=== PATIENT | male | born 1930 | race African-American/Black ===

== ENCOUNTER 2017-09-23 16:50 | Inpatient (IN) ==
[2017-09-23] MEDS ORDERED: Naloxone 0.4 MG/ML INJ IVP PRN (22:48)
--- NOTE | 2017-09-23 22:53 | Internal Med History&Physical ---
Date of Encounter: 09/23/17 Time of Encounter: 22:52 Internal Medicine - H&P: HPI Chief complaint: Chest pain on arrival to [place] and abnormal labs Admitted From: Hospital to Hospital Transfer Plans for Post Hospital Care: Home History of present illness: Mr. Prather is a 86 year old male who was hospitalized in the [place] in [place]. He had visited [facility] for chest pain and was hospitalized there over the weekend. 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 Patient is a background history of benign prostatic hypertrophy, severe prostate , hip arthritis, hearing loss. Patient was transferred here from [place] for elevated troponin 1.67. Patient received aspirin/statin/beta blockers/Lovenox Reason for transfer: Elevated troponin We received some records from [place] but appears to be incomplete. Tomorrow we will her to contact [place] To get all the records from there. At the time of examination patient is chest pain-free Past Med Surg Social Fam HX - Past Medical History Medical history: other Psychiatric history: no psych history - Social History Smoking Status: Never smoker Alcohol use: rarely Drug use: none Internal Medicine - H&P: Meds Alfuzosin HCl [Uroxatral] 10 mg PO DAILY 09/23/17 [History] Aspirin [Lo-Dose Aspirin EC] 81 mg PO DAILY 09/23/17 [History] Atorvastatin [Lipitor] 40 mg PO HS 09/23/17 [History] Chlorhexidine Rinse 15 ml MM DAILY 09/23/17 [History] Cholecalciferol (D-3) [Vitamin D] 2,000 unit PO DAILY 09/23/17 [History] Enoxaparin [Lovenox] 60 mg SQ Q12HR 09/23/17 [History] Furosemide [Lasix] 20 mg IV DAILY 09/23/17 [History] Gabapentin [Neurontin] 300 mg PO TID 09/23/17 [History] Ipratropium/Albuterol Neb [Duoneb] 3 ml IH Q6HR 09/23/17 [History] Metoprolol [Lopressor] 12.5 mg PO BID 09/23/17 [History] Pantoprazole Sodium [Protonix] 40 mg PO DAILY 09/23/17 [History] 3 Allergy/AdvReac Type Severity Reaction Status Date / Time No Known Allergies Allergy Verified 09/15/15 18:03 All Systems PM: A 10-system review of systems was performed and is negative for pertinent findings except as documented above in the HPI. - Constitutional Constitutional: no chills, no fever(s), no night sweats - EENT Eyes: no change in vision, no discharge, no pain, no photophobia Ears: no ear discharge, no ear pain, no tinnitus Nose, mouth and throat: no dysphagia, no nasal discharge, no neck pain, no sore throat - Cardiovascular Cardiovascular ROS IM: chest pain, no diaphoresis, no dyspnea, no lightheadedness, no palpitations, no syncope - Respiratory Respiratory: no cough, no dyspnea, no wheezing, no excessive phlegm production - Gastrointestinal Gastrointestinal: no abdominal pain, no diarrhea, no hematemesis, no hematochezia, no melena, no nausea, no vomiting - Musculoskeletal Musculoskeletal ROS IM: no numbness, no tingling - Integumentary Integumentary IM: no rash, no unusual bruising - Neurological Neurological ROS: no confusion, no convulsions, no focal weakness, no numbness, no tingling, no tremor(s) - Hematologic/Lymphatic Hematologic/Lymphatic: no easy bruising - Constitutional Vitals: Temp Pulse Resp BP Pulse Ox 97.4 F L 95 16 139/85 100 09/23/17 20:33 09/23/17 20:33 09/23/17 20:33 09/23/17 20:33 09/23/17 20:33 General appearance: Present: A&O X 3, pleasant, no acute distress, answers questions appropriately - Head Head exam: Present: atraumatic, normocephalic - Eye Eye exam: Present: PERRL, conjuntiva pink, sclera anicteric Pupils: Present: PERRL - Neck Neck exam general surgery: Present: supple, trachea midline. Absent: lymphadenopathy - Respiratory Respiratory exam: Present: CTAB. Absent: accessory muscle use, rales, rhonchi, wheezes - Cardiovascular Cardiovascular exam: Present: RRR, +S1, +S2. Absent: diastolic murmur, gallop, rubs, systolic murmur - GI/Abdominal GI/Abdominal exam: Present: normal bowel sounds, soft, no peritoneal signs. Absent: distended, tenderness - Extremities Exam Extremities exam: Present: warm, radial pulses palpable and symmetrical. Absent : calf tenderness, cyanotic, pedal edema - Neurological Exam Neurological exam: Present: CN II-XII intact, oriented X3, no focal deficits. Absent: pronater drift, facial droop, speech deficit - Skin Skin exam: Present: dry, intact Internal Med - H&P Results - Labs Labs: Cardiac Enzymes 09/23/17 Range/Units 18:52 Troponin I 1.66 H* (< 0.04) ng/mL - Assessment and plan (1) Chest pain Current Visit: Yes Status: Acute Assessment and plan: Episodes/male Admitted to [facility] with chest pain. noted that patient has elevated troponin. Plan: Admit as inpatient Cycle troponin. Labs tomorrow morning. Nothing by mouth from midnight. Aspirin/statin/beta javid/Lovenox/ Cardiology consult Qualifiers: Chest pain type: precordial pain Qualified Code(s): R07.2 - Precordial pain (2) Coronary artery disease Current Visit: Yes Status: Acute Assessment and plan: Patient is known to have coronary artery disease. At this point patient is chest pain-free. patient is on appropriate medication. We will monitor him very closely. Qualifiers: Coronary Disease-Associated Artery/Lesion type: [place] artery [place] vs. transplanted heart: [place] heart Associated angina: with stable angina Qualified Code(s): I25.118 - Atherosclerotic heart disease of [place] coronary artery with other forms of angina pectoris (3) Benign prostate hyperplasia Current Visit: Yes Status: Acute Assessment and plan: Patient has benign prostatic hyperplasia/prostatic malignancy. At this point patient's urine flow is appropriate. we will monitor him closely. Qualifiers: Lower urinary tract symptom presence: unspecified whether lower urinary tract symptoms present Qualified Code(s): N40.0 - Benign prostatic hyperplasia without lower urinary tract symptoms (4) DVT prophylaxis Current Visit: Yes Status: Acute Assessment and plan: Lovenox Medical decision making: This patient has a moderate to severe risk of worsening in spite of being on appropriate medication due to the underlying complex medical condition. - Time Spent With Patient Total time spent is greater than 50% in coordination of care (as documented) at patient's floor/unit and/or counseling patient:
[2017-09-24] MEDS: Ipratropium/Albuterol Neb 3 ML IH SCH ×5 (00:22→21:29)
[2017-09-24 01:31] LABS: Basophils # 0.1 K/mcL (0.0-0.2); Basophils % 0.8 %; Eosinophils # 0.1 K/mcL (0.0-0.6); Eosinophils % 1.7 %; Hematocrit 33.6 % (37.5-50.1); Hemoglobin 10.7 g/dL (12.9-16.9); Immature Granulocytes % 0.5 % (0-4); Mean Corpuscular HGB Conc 31.8 g/dL (31.6-35.5); Mean Corpuscular Hemoglobin 31.6 pg (28.0-33.3); Mean Corpuscular Volume 99.1 fL (83.0-100.0); Mean Platelet Volume 10.8 fL (9.4-12.4); Monocytes # 0.9 K/mcL (0.0-1.3); Monocytes % 13.1 %; Neutrophils # 3.6 K/mcL (1.6-8.9); Platelet Count 220 K/mcL (140-400); Red Blood Count 3.39 M/mcL (4.19-5.50); Red Cell Distribution Width 13.2 % (11.5-14.5); Segmented Neutrophils % 53.9 %
[2017-09-24 01:38] LABS: INR 1.2
[2017-09-24 01:39] LABS: Activated Partial Thrombo Time 38.4 Seconds (26.0-36.0)
[2017-09-24 01:59] LABS: Alanine Aminotransferase 68 Units/L (7-52); Albumin 3.8 g/dL (3.5-5.7); Albumin/Globulin Ratio 1.3 (1.1-2.2); Alkaline Phosphatase 125 Units/L (34-104); Aspartate Amino Transferase 42 Units/L (13-39); BUN/Creatinine Ratio 39 (6-26); Bilirubin,Total 0.6 mg/dL (0.3-1.0); Blood Urea Nitrogen 44 mg/dL (8-23); Calcium 8.9 mg/dL (8.6-10.3); Carbon Dioxide 25 mEq/L (23-29); Chloride 107 mEq/L (98-107); Chol/HDL Ratio 7.2 (0-4.9); Cholesterol 181 mg/dL (< 200); Glucose 112 mg/dL (70-105); HDL Cholesterol 25 mg/dL (40-59); LDL Cholesterol,Calculated 126 mg/dL (0-99); Magnesium 2.3 mg/dL (1.6-2.6); Osmolality,Calculated 308 (280-300); Phosphorous 3.6 mg/dL (2.7-4.5); Potassium 3.7 mEq/L (3.5-5.1); Sodium 143 mEq/L (136-145); Total Protein 6.8 g/dL (6.4-8.9); Triglycerides 151 mg/dL (< 150); eGFR For African Americans > 60 (> 60); eGFR For Non-African Americans > 60 (> 60)
[2017-09-24] MEDS ORDERED: *HR* Enoxaparin 60 MG/0.6 ML SYRINGE SQ SCH (06:00)
[2017-09-24 07:13] LABS: Troponin I 1.35 ng/mL (< 0.04)
--- NOTE | 2017-09-24 08:15 | Internal Med Progress Note ---
<Von Jo - Last Filed: 09/24/17 13:07> Date of Encounter: 09/24/17 Time of Encounter: 08:07 - Assessment and plan (1) Chest pain Current Visit: Yes Status: Acute Assessment and plan: Symptoms of SOB, denies CP, but documentation reported patient had CP. Risk factors: Age, Gender, HTN, HLD. Patient was treated with lasix for SOB last week, but has no history of CHF or other cardiac disease. Patient has had 3 positive trops of 1.66, 1.35, 1.71, and elevated BNP at 638. Lipid panel was completed on admission; Tri 151, T. chol 181, LDL 126, HDL 25 (ASCVD not applicable due to patient's age). I personally reviewed 3 of his EKG's taken prior to transfer which shows no ST elevations. On physical exam patient does have a systolic murmur 3/6 L 4th IC. NSTEMI vs Mitral regurg vs other etiology. On admission, patient received ASA, statin, BB, lovenox, and place on NPO - Cardiology consulted, appreciate their input. NPO until further recommendations - ordered an echo to further workup systolic murmur - Continue ASA, statin, lovenox, lopressor. - continue tele Qualifiers: Chest pain type: precordial pain Qualified Code(s): R07.2 - Precordial pain (2) Coronary artery disease Current Visit: Yes Status: Acute Assessment and plan: see above Qualifiers: Coronary Disease-Associated Artery/Lesion type: [place] artery [place] vs. transplanted heart: [place] heart Associated angina: with stable angina Qualified Code(s): I25.118 - Atherosclerotic heart disease of [place] coronary artery with other forms of angina pectoris (3) Benign prostate hyperplasia Current Visit: Yes Status: Acute Assessment and plan: Patient has benign prostatic hyperplasia/prostatic malignancy. currently urine flow is appropriate - continue home flomax - strict I/O - can place wing cath if need be Qualifiers: Lower urinary tract symptom presence: unspecified whether lower urinary tract symptoms present Qualified Code(s): N40.0 - Benign prostatic hyperplasia without lower urinary tract symptoms (4) Systolic murmur Current Visit: Yes Status: Acute Assessment and plan: 3/6 systolic murmur heard in 4th left IC. see above for management. (5) Shortness of breath Current Visit: Yes Status: Acute Assessment and plan: see above (6) Weakness Current Visit: Yes Status: Acute Assessment and plan: patient reports unclear history of thyroid disease. - ordered TSH (7) DVT prophylaxis Current Visit: Yes Status: Acute Assessment and plan: Lovenox Medical decision making: This patient has a moderate to severe risk of worsening in spite of being on appropriate medication due to the underlying complex medical condition. - Time Spent With Patient Total time spent is greater than 50% in coordination of care (as documented) at patient's floor/unit and/or counseling patient: - Subjective Interval history: Mr Prather is an 86 yo M w/ pmh of HLD, HTN, metastatic prostate cancer (unknown treatment) presented with a 1 week history of shortness of breath to the [place] in which he was placed on lasix. His shortness of breath did not resolve and [facility] and found to have elevated trops with no ST elevations found on EKG. Patient was presumed to have NSTEMI and transferred to [place] for further workup. Patient is seen and examined. He continues to report having shortness of breath at rest that does not change with position but denies chest pain, swelling in his legs, nausea, vomiting, fever, PND, orthopnea. - Constitutional Vitals: Temp Pulse Resp BP Pulse Ox 98.7 F 93 18 118/62 94 09/24/17 07:00 09/24/17 07:00 09/24/17 07:00 09/24/17 07:00 09/24/17 07:00 General appearance: Present: A&O X 3, pleasant, no acute distress, answers questions appropriately - Head Head exam: Present: atraumatic, normocephalic - ENT ENT exam: Present: mucous membranes dry - Neck Neck exam general surgery: Present: supple - Respiratory Respiratory exam: Present: CTAB - Cardiovascular Cardiovascular exam: Present: systolic murmur (Left 4th IC 3/6 systolic murmur) - GI/Abdominal GI/Abdominal exam: Present: hypoactive bowel sounds, soft. Absent: firm, guarding, rigid - Extremities Exam Extremities exam: Absent: pedal edema Internal Medicine: Result - Labs CBC & Chem 7: 09/24/17 00:48 09/24/17 00:48 Labs: Short CBC 09/24/17 Range/Units 00:48 WBC 6.6 (4.3-11.1) K/mcL Hgb 10.7 L (12.9-16.9) g/dL Hct 33.6 L (37.5-50.1) % Plt Count 220 (140-400) K/mcL Neutrophils # 3.6 (1.6-8.9) K/mcL BMP 09/24/17 00:48 Sodium 143 Potassium 3.7 Chloride 107 Carbon Dioxide 25 BUN 44 H Creatinine 1.12 Glucose 112 H Calcium 8.9 Cardiac Enzymes 09/23/17 09/24/17 09/24/17 Range/Units 18:52 00:48 06:33 Troponin I 1.66 H* 1.71 H* 1.35 H* (< 0.04) ng/mL Liver Function 09/24/17 Range/Units 00:48 Total Bilirubin 0.6 (0.3-1.0) mg/dL AST 42 H (13-39) Units/L ALT 68 H (7-52) Units/L Alkaline Phosphatase 125 H (34-104) Units/L Albumin 3.8 (3.5-5.7) g/dL - ABG Interpretation ABG results: PT/INR, D-dimer PT 13.0 Seconds (9.4-12.1) H 09/24/17 00:48 Consult Discharge Plan - Plan [facility]errals: [facility] [Primary Care Provider] - <Percy Moore - Last Filed: 09/24/17 17:30> Date of Encounter: 09/24/17 - Time Spent With Patient Total time spent is greater than 50% in coordination of care (as documented) at patient's floor/unit and/or counseling patient: - Constitutional Vitals: Temp Pulse Resp BP Pulse Ox 97.4 F L 94 17 123/68 96 09/24/17 15:00 09/24/17 15:00 09/24/17 15:26 09/24/17 15:00 09/24/17 15:26 Internal Medicine: Result - Labs CBC & Chem 7: 09/24/17 00:48 09/24/17 00:48 Labs: Short CBC 09/24/17 Range/Units 00:48 WBC 6.6 (4.3-11.1) K/mcL Hgb 10.7 L (12.9-16.9) g/dL Hct 33.6 L (37.5-50.1) % Plt Count 220 (140-400) K/mcL Neutrophils # 3.6 (1.6-8.9) K/mcL BMP 09/24/17 00:48 Sodium 143 Potassium 3.7 Chloride 107 Carbon Dioxide 25 BUN 44 H Creatinine 1.12 Glucose 112 H Calcium 8.9 Cardiac Enzymes 09/23/17 09/24/17 09/24/17 Range/Units 18:52 00:48 06:33 Troponin I 1.66 H* 1.71 H* 1.35 H* (< 0.04) ng/mL Liver Function 09/24/17 Range/Units 00:48 Total Bilirubin 0.6 (0.3-1.0) mg/dL AST 42 H (13-39) Units/L ALT 68 H (7-52) Units/L Alkaline Phosphatase 125 H (34-104) Units/L Albumin 3.8 (3.5-5.7) g/dL - ABG Interpretation ABG results: PT/INR, D-dimer PT 13.0 Seconds (9.4-12.1) H 09/24/17 00:48 - Impressions Impressions Liver Ultrasound 09/24/17 14:30 IMPRESSION: 1. Cholelithiasis and biliary sludge without secondary findings of cholecystitis. Consider further evaluation with a nuclear medicine hepatobiliary scan if there are clinical findings of cholecystitis. 2. Mild hepatic steatosis. 3. Right pleural effusion. D/ / James Hammer MD / James Hammer MD Interpreting Provider: James Hammer MD - Attending Attestation I saw and examined this patient independently, and my medical decision making was reviewed with the resident physician on 2017. I agree with the documented findings, assessment and treatment plan as described in the progress note. Patient declined cardiac catheterization, requesting medical management.
[2017-09-24] MEDS: Gabapentin 300 MG CAPSULE PO SCH ×3 (08:57→23:09)
[2017-09-24] MEDS: Cholecalciferol (D-3) 1,000 UNIT TABLET PO SCH (08:57)
[2017-09-24] MEDS: Chlorhexidine Rinse 15 ML MOUTHWASH MM SCH (08:57)
[2017-09-24] MEDS: Aspirin Enteric Coated 81 MG Tablet PO SCH (08:57)
[2017-09-24 09:47] LABS: Thyroid Stimulating Hormone 1.796 mcIU/mL (0.340-5.600)
--- NOTE | 2017-09-24 10:45 | Cardiology Consult Note ---
<Radha Hernandez - Last Filed: 09/24/17 11:16> Date of Encounter: 09/24/17 Time of Encounter: 08:45 Assessment and Plan (1) NSTEMI (non-ST elevated myocardial infarction) Current Visit: Yes Status: Acute Per cardiology: -Presented to [place] with complaints of shortness of breath and wekaness. -Troponin [place] 1.72, [facility] 1.66, 1.71, 1.35. -On asa, statin, beta javid. On lovenox. -Denies chest pain. -NO acute ischemic ECG changes. -TTE pending. -Discussed at length with patient, patient refuses further invasive cardiac intervention and request medical management. -Of note, code status DNRCCA/DNI. -Recommend continuing therapeutic lovenox for 48 hours. (2) Elevated alanine aminotransferase (ALT) level Current Visit: Yes Status: Acute Per cardiology: -ALT 68. Unknown baseline. -On statin. -Per discussion with , will check liver ultrasound. Ideally would continue statin due ot NSTEMI, LDL 126. -Further recommendations pending liver ultrasound. Discussion w patient/family: The assessment and plan as outlined above was discussed with the patient who expressed understanding and agreement. All questions were answered. Thank you for involving us in the care of your patient. Please call with any questions. Discussed and reviewed with . History of Present Illness Consult date: 09/23/17 Requesting physician: Heath Laboy Consult reason: NSTEMI Chief complaint: weakness, shortness of breath History of present illness: Mr. Prather is a 86 year old male with a relevant past medical history of HTN, BPH , previous smoker. Patient presented to [facility] with complaints of one week of weakness and shortness of breath. Patient was noted to have elevated troponin and was transferred to [facility]. Patient denies chest pain. States shortness of breath is about the same. Past Med Surg Social Fam HX - Past Medical History Attestation: Yes The following information was validated with the patient. Source: patient, old records reviewed Medical history: hypertension, other Psychiatric history: no psych history - Social History Smoking Status: Never smoker Alcohol use: rarely Drug use: none Medications and Allergies Alfuzosin HCl [Uroxatral] 10 mg PO DAILY 09/23/17 [History] Aspirin [Lo-Dose Aspirin EC] 81 mg PO DAILY 09/23/17 [History] Atorvastatin [Lipitor] 40 mg PO HS 09/23/17 [History] Chlorhexidine Rinse 15 ml MM DAILY 09/23/17 [History] Cholecalciferol (D-3) [Vitamin D] 2,000 unit PO DAILY 09/23/17 [History] Enoxaparin [Lovenox] 60 mg SQ Q12HR 09/23/17 [History] Furosemide [Lasix] 20 mg IV DAILY 09/23/17 [History] Gabapentin [Neurontin] 300 mg PO TID 09/23/17 [History] Ipratropium/Albuterol Neb [Duoneb] 3 ml IH Q6HR 09/23/17 [History] Metoprolol [Lopressor] 12.5 mg PO BID 09/23/17 [History] Pantoprazole Sodium [Protonix] 40 mg PO DAILY 09/23/17 [History] 3 Allergy/AdvReac Type Severity Reaction Status Date / Time No Known Allergies Allergy Verified 09/15/15 18:03 All Systems Review: The remainder of the systems were reviewed and are negative - Constitutional Constitutional: weakness - Cardiovascular Cardiovascular: as per HPI, dyspnea on exertion Physical Examination Vital Signs, Last 4 Hours Temp Pulse Resp BP Pulse Ox 09/24/17 07:00 98.7 F 93 18 118/62 94 General: Conversant, No Apparent Distress HEENT: Atraumatic, Normocephaly, Mucus Membranes Moist Neck: No JVD, Normal carotid pulses Cardiac: Reg Rate and Rhythm, Normal S1 and S2, No Murmur Lungs: Normal Breath Sounds, No Wheeze, Rales, Rhonchi Neuro: Alert and responsive, No focal deficits noted Abdomen: Soft, Non-Tender Skin: No rashes noted on visualized skin Musculoskeletal: No Chest Wall Tenderness Extremities: No Clubbing, No Cyanosis, No Edema, Normal Pulses Results 09/24/17 00:48 09/24/17 00:48 Lab Results Active Medications Albuterol/Ipratropium (Duoneb) 3 ml IH [id number] JACK Stop: 03/26/18 00:01 Last Admin: 09/24/17 03:52 Dose: 3 ml Aspirin (Aspirin Ec) 81 mg PO DAILY JACK Stop: 03/26/18 09:01 Last Admin: 09/24/17 08:57 Dose: 81 mg Atorvastatin Calcium (Lipitor) 40 mg PO HS JACK Stop: 03/26/18 21:01 Chlorhexidine Gluconate (Chlorhexidine Rinse) 15 ml MM DAILY JACK Stop: 03/26/18 09:01 Last Admin: 09/24/17 08:57 Dose: 15 ml Enoxaparin Sodium (Lovenox) 60 mg SQ Q12HR JACK Stop: 03/26/18 06:01 Last Admin: 09/24/17 06:45 Dose: 60 mg Gabapentin (Neurontin) 300 mg PO TID JACK Stop: 03/26/18 09:01 Last Admin: 09/24/17 08:57 Dose: 300 mg Metoprolol Tartrate (Lopressor) 12.5 mg PO BID JACK Stop: 03/26/18 09:01 Last Admin: 09/24/17 08:57 Dose: 12.5 mg Naloxone HCl (Narcan) 0.4 mg IVP Q2MIN PRN PRN Reason: SEE COMMENTS Stop: 03/25/18 22:49 Omeprazole (Prilosec) 20 mg PO DAILY JACK Stop: 03/26/18 09:01 Last Admin: 09/24/17 08:57 Dose: 20 mg Tamsulosin HCl (Flomax) 0.8 mg PO DAILY JACK Stop: 03/26/18 09:01 Last Admin: 09/24/17 08:57 Dose: 0.8 mg Vitamin D (Vitamin D) 1,000 unit PO DAILY JACK Stop: 03/26/18 09:01 Last Admin: 09/24/17 08:57 Dose: 1,000 unit Laboratory Tests 09/23/17 09/24/17 09/24/17 18:52 00:48 00:48 Hgb 10.7 L Creatinine ALT Troponin I 1.66 H* 1.71 H* LDL Cholesterol, Calc 09/24/17 09/24/17 00:48 06:33 Hgb Creatinine 1.12 ALT 68 H Troponin I 1.35 H* LDL Cholesterol, Calc 126 H - Imaging and Cardiology Echo: pending - EKG Interpretation EKG results cardiology: personally reviewed (ECG with SR, HR 91.), other ( Telemetry reviewed with average HR previous 12 hours noted to be 91, SR. PVCs and PACs noted.) Consult Discharge Plan - Plan [facility]errals: [facility] [Primary Care Provider] - <AnnettePoonam - Last Filed: 09/24/17 15:41> Date of Encounter: 09/24/17 - Attending Attestation I examined this patient and my medical decision-making was reviewed with the THE[employer] PRODUCTION DESIGNER. I agree with the documented findings, disposition and treatment plan as described. Mr. Prather presents with SOB and weakness. [facility]. Troponin peaked here at 1.71. Patient denies recent chest pain. There are no acute ischemic ECG findings. Patient Daughter at the bedside who is medical POA. We discussed these findings. I recommended awaiting echo results to help guide management -also with murmur on exam which per patient and daughter is new. Patient has been hemodynamically stable. Patient initially declined LHC. However, he may reconsider if LV systolic function has declined. For now, continue heparin gtt, asa, BB. We are awaiting liver US to help guide management of statin therapy - LFTs mildly increased. Assessment and Plan Discussion w patient/family: The assessment and plan as outlined above was discussed with the patient and/or family members who expressed understanding and agreement. All questions were answered. Thank you for involving us in the care of your patient. Please call with any questions. History of Present Illness History of present illness: Mr. Prather is a 86 year old male All Systems Review: The remainder of the systems were reviewed and are negative Physical Examination Vital Signs, Last 4 Hours Resp Pulse Ox 09/24/17 15:26 17 96 Results 09/24/17 00:48 09/24/17 00:48 Lab Results 09/23/17 09/24/17 09/24/17 18:52 00:48 00:48 WBC 6.6 Hgb 10.7 L Hct 33.6 L Plt Count 220 INR APTT Sodium Potassium Chloride Carbon Dioxide BUN Creatinine Glucose Calcium Magnesium Total Bilirubin AST ALT Alkaline Phosphatase Troponin I 1.66 H* 1.71 H* B-Natriuretic Peptide TSH 09/24/17 09/24/17 09/24/17 00:48 00:48 00:48 WBC Hgb Hct Plt Count INR 1.2 APTT 38.4 H Sodium 143 Potassium 3.7 Chloride 107 Carbon Dioxide 25 BUN 44 H Creatinine 1.12 Glucose 112 H Calcium 8.9 Magnesium 2.3 Total Bilirubin 0.6 AST 42 H ALT 68 H Alkaline Phosphatase 125 H Troponin I B-Natriuretic Peptide 638 H TSH 09/24/17 06:33 WBC Hgb Hct Plt Count INR APTT Sodium Potassium Chloride Carbon Dioxide BUN Creatinine Glucose Calcium Magnesium Total Bilirubin AST ALT Alkaline Phosphatase Troponin I 1.35 H* B-Natriuretic Peptide TSH 1.796
[2017-09-24] MEDS: *HR* Enoxaparin 80 MG/0.8 ML SYRINGE SQ SCH (17:26)
[2017-09-25] MEDS: Ipratropium/Albuterol Neb 3 ML IH SCH ×3 (03:48→15:34)
[2017-09-25] MEDS: *HR* Enoxaparin 80 MG/0.8 ML SYRINGE SQ SCH (05:35)
[2017-09-25 05:58] LABS: Hematocrit 32.7 % (37.5-50.1); Hemoglobin 10.4 g/dL (12.9-16.9); Mean Corpuscular HGB Conc 31.8 g/dL (31.6-35.5); Mean Corpuscular Hemoglobin 31.4 pg (28.0-33.3); Mean Corpuscular Volume 98.8 fL (83.0-100.0); Mean Platelet Volume 10.7 fL (9.4-12.4); Platelet Count 225 K/mcL (140-400); Red Blood Count 3.31 M/mcL (4.19-5.50); Red Cell Distribution Width 13.5 % (11.5-14.5)
[2017-09-25 06:22] LABS: BUN/Creatinine Ratio 33 (6-26); Blood Urea Nitrogen 41 mg/dL (8-23); Calcium 8.9 mg/dL (8.6-10.3); Carbon Dioxide 24 mEq/L (23-29); Chloride 109 mEq/L (98-107); Glucose 146 mg/dL (70-105); Osmolality,Calculated 307 (280-300); Potassium 3.8 mEq/L (3.5-5.1); Sodium 142 mEq/L (136-145); eGFR For African Americans > 60 (> 60); eGFR For Non-African Americans 55 (> 60)
[2017-09-25] MEDS: Aspirin Enteric Coated 81 MG Tablet PO SCH (09:44)
[2017-09-25] MEDS: Cholecalciferol (D-3) 1,000 UNIT TABLET PO SCH (09:45)
[2017-09-25] MEDS: Gabapentin 300 MG CAPSULE PO SCH ×3 (09:45→20:38)
--- NOTE | 2017-09-25 09:47 | Internal Med Progress Note ---
<Von Jo - Last Filed: 09/25/17 10:08> Date of Encounter: 09/25/17 Time of Encounter: 09:47 - Assessment and plan (1) Chest pain Current Visit: Yes Status: Acute Assessment and plan: Symptoms of SOB, denies CP, but documentation reported patient had CP. Risk factors: Age, Gender, HTN, HLD. Patient was treated with lasix for SOB last week, but has no history of CHF or other cardiac disease. Patient has had 3 positive trops of 1.66, 1.35, 1.71, and elevated BNP at 638. Lipid panel was completed on admission; Tri 151, T. chol 181, LDL 126, HDL 25 (ASCVD not applicable due to patient's age). I personally reviewed 3 of his EKG's taken prior to transfer which shows no ST elevations. On physical exam patient does have a systolic murmur 3/6 L 4th IC. NSTEMI vs Mitral regurg vs other etiology. On admission, patient received ASA, statin, BB, lovenox, and place on NPO - Cardiology consulted, appreciate their input. NPO until further recommendations. update discussed with [facility] on cardio, patient is in agreement will most likely have LHC later today* - echo read as VSD, mild tricupsid regurg - Continue ASA, statin, lovenox, lopressor. - continue tele Qualifiers: Chest pain type: precordial pain Qualified Code(s): R07.2 - Precordial pain (2) Coronary artery disease Current Visit: Yes Status: Acute Assessment and plan: see above Qualifiers: Coronary Disease-Associated Artery/Lesion type: [place] artery [place] vs. transplanted heart: [place] heart Associated angina: with stable angina Qualified Code(s): I25.118 - Atherosclerotic heart disease of [place] coronary artery with other forms of angina pectoris (3) Benign prostate hyperplasia Current Visit: Yes Status: Acute Assessment and plan: Patient has benign prostatic hyperplasia/prostatic malignancy. currently urine flow is appropriate - continue home flomax - strict I/O - can place wing cath if need be Qualifiers: Lower urinary tract symptom presence: unspecified whether lower urinary tract symptoms present Qualified Code(s): N40.0 - Benign prostatic hyperplasia without lower urinary tract symptoms (4) Systolic murmur Current Visit: Yes Status: Acute Assessment and plan: 3/6 systolic murmur heard in 4th left IC. see above for management. (5) Shortness of breath Current Visit: Yes Status: Acute Assessment and plan: see above (6) DVT prophylaxis Current Visit: Yes Status: Acute Assessment and plan: Lovenox Medical decision making: This patient has a moderate to severe risk of worsening in spite of being on appropriate medication due to the underlying complex medical condition. (7) Weakness Current Visit: Yes Status: Acute Assessment and plan: patient reports unclear history of thyroid disease. - ordered TSH - Time Spent With Patient Total time spent is greater than 50% in coordination of care (as documented) at patient's floor/unit and/or counseling patient: - Subjective Interval history: Mr Prather is an 86 yo M w/ pmh of HLD, HTN, metastatic prostate cancer (unknown treatment) presented with a 1 week history of shortness of breath to the [facility] in which he was placed on lasix. His shortness of breath did not resolve and he returned to the [facility] with progressively worse symptoms and found to have elevated trops with no ST elevations found on EKG. Patient was presumed to have NSTEMI and transferred to [place] for further workup. Patient is seen and examined. He reports that as long as he's resting he has no difficutly in breathing. Patient expressed interest in proceeding with heart cath. Patient denies chest pain, swelling in legs, nausea, vomiting, PND , Orthopnea. - Constitutional Vitals: Temp Pulse Resp BP Pulse Ox 97.6 F 89 16 137/75 93 09/25/17 07:31 09/25/17 07:31 09/25/17 07:31 09/25/17 07:31 09/25/17 07:31 General appearance: Present: A&O X 3, pleasant, no acute distress, answers questions appropriately - Head Head exam: Present: atraumatic, normocephalic - ENT ENT exam: Present: mucous membranes moist - Respiratory Respiratory exam: Present: CTAB - Cardiovascular Cardiovascular exam: Present: RRR - Extremities Exam Extremities exam: Absent: pedal edema Internal Medicine: Result - Labs CBC & Chem 7: 09/25/17 05:05 09/25/17 05:05 Labs: Short CBC 09/25/17 Range/Units 05:05 WBC 7.9 (4.3-11.1) K/mcL Hgb 10.4 L (12.9-16.9) g/dL Hct 32.7 L (37.5-50.1) % Plt Count 225 (140-400) K/mcL BMP 09/25/17 05:05 Sodium 142 Potassium 3.8 Chloride 109 H Carbon Dioxide 24 BUN 41 H Creatinine 1.25 Glucose 146 H Calcium 8.9 - ABG Interpretation ABG results: PT/INR, D-dimer PT 13.0 Seconds (9.4-12.1) H 09/24/17 00:48 - Impressions Impressions Liver Ultrasound 09/24/17 14:30 IMPRESSION: 1. Cholelithiasis and biliary sludge without secondary findings of cholecystitis. Consider further evaluation with a nuclear medicine hepatobiliary scan if there are clinical findings of cholecystitis. 2. Mild hepatic steatosis. 3. Right pleural effusion. D/ / James Hammer MD / James Hammer MD Interpreting Provider: James Hammer MD Consult Discharge Plan - Plan Referrals: [facility],PCP [Primary Care Provider] - <Fabricio Juarez - Last Filed: 09/25/17 15:29> Date of Encounter: 09/25/17 - Assessment and plan (1) Chest pain Current Visit: Yes Status: Acute Qualifiers: Chest pain type: precordial pain Qualified Code(s): R07.2 - Precordial pain (2) Coronary artery disease Current Visit: Yes Status: Acute Qualifiers: Coronary Disease-Associated Artery/Lesion type: [place] artery [place] vs. transplanted heart: [place] heart Associated angina: with stable angina Qualified Code(s): I25.118 - Atherosclerotic heart disease of [place] coronary artery with other forms of angina pectoris (3) Benign prostate hyperplasia Current Visit: Yes Status: Acute Qualifiers: Lower urinary tract symptom presence: unspecified whether lower urinary tract symptoms present Qualified Code(s): N40.0 - Benign prostatic hyperplasia without lower urinary tract symptoms (4) DVT prophylaxis Current Visit: Yes Status: Acute (5) Systolic murmur Current Visit: Yes Status: Acute (6) Shortness of breath Current Visit: Yes Status: Acute (7) Weakness Current Visit: Yes Status: Acute - Time Spent With Patient Total time spent is greater than 50% in coordination of care (as documented) at patient's floor/unit and/or counseling patient: - Constitutional Vitals: Temp Pulse Resp BP Pulse Ox 98 F 91 16 110/70 98 09/25/17 11:42 09/25/17 11:42 09/25/17 11:42 09/25/17 11:42 09/25/17 11:42 Internal Medicine: Result - Labs CBC & Chem 7: 09/25/17 05:05 09/25/17 05:05 Labs: Short CBC 09/25/17 Range/Units 05:05 WBC 7.9 (4.3-11.1) K/mcL Hgb 10.4 L (12.9-16.9) g/dL Hct 32.7 L (37.5-50.1) % Plt Count 225 (140-400) K/mcL BMP 09/25/17 05:05 Sodium 142 Potassium 3.8 Chloride 109 H Carbon Dioxide 24 BUN 41 H Creatinine 1.25 Glucose 146 H Calcium 8.9 - ABG Interpretation ABG results: PT/INR, D-dimer PT 13.0 Seconds (9.4-12.1) H 09/24/17 00:48 - Impressions Impressions Echocardiogram 09/24/17 08:06 Impressions: LVEF 60-65%. Normal LV chamber size, wall thickness and overall function. The basal inferoseptum appears very thin and somewhat aneurysmal in some views. Color Doppler across this area suggests the presence of a VSD. CW and PW Doppler not applied. Mild left ventricular diastolic dysfunction. The basal inferoseptum appears very think and somewhat aneurysmal. Color Doppler across this area suggests the presence of a VSD. CW and PW Doppler not applied. The right ventricle appears normal in size and function. Mild tricuspid regurgitation. Mild pulmonary hypertension. Estimated RVSP is 39 mmHg. Findings discussed with cardiology service. 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 All other wall segments showed normal motion. Findings: Study Quality * Technically adequate exam. ECG Findings * Normal sinus rhythm. Left Ventricle * LVEF 60-65%. * Normal LV chamber size, wall thickness and overall function. * Mild left ventricular diastolic dysfunction. * The basal inferoseptum appears very thin and somewhat aneurysmal in some views. Color Doppler across this area suggests the presence of a VSD. CW and PW Doppler not applied. Right Ventricle * The right ventricle appears normal in size and function. Left Atrium * Mildly dilated left atrium. Right Atrium * Mildly dilated right atrium. Interatrial Septum * Interatrial septum not well evaluated. Aortic Valve * Trileaflet aortic valve. * Mildly calcified aortic valve leaflets. * No aortic regurgitation. * No aortic stenosis. Mitral Valve * Normal mitral valve structure and function. * No mitral regurgitation. * No mitral stenosis. Tricuspid Valve * Normal tricuspid valve structure. * Mild tricuspid regurgitation. * Mild pulmonary hypertension. * Estimated RVSP is 39 mmHg. * Estimated RA pressure is 5 mmHg. Pulmonic Valve * Normal pulmonic valve structure and function. * No pulmonic regurgitation. Aorta * Normally sized aortic root. Pericardium * The pericardium appears normal. IVC * IVC is dilated. 50% collapse with Valsalva. Pulmonary Artery * Normal visualized portions of the main pulmonary artery. - Attending Attestation I performed an independent interview and exam of this patient. I agree with the findings, assessment, and plan of Dr. Jo, internal medicine post graduate internship. My input is reflected in his note. Cardiology input noted and appreciated. Patient has a VSD which may need surgical repair. He is to undergo left heart catheterization today. We are awaiting further cardiology recommendations with regards to this. Patient is denying any chest pain at this time. Remains hemodynamically stable. All else as outlined above.
[2017-09-25] MEDS: Chlorhexidine Rinse 15 ML MOUTHWASH MM SCH (09:48)
--- NOTE | 2017-09-25 12:54 | Event Note ---
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 Recommend [facility]. Risks versus benefits of LHC explained to patient, patient states understanding and agreeable to proceed. May also need transfer to [place] for percutaneous closure of VSD. Pateint and family updated. Utilization review called and left message due to [employer] insurance and need for transfer. Further recommendations pending [facility].
[2017-09-25] MEDS ORDERED: Heparin 1,000 UNITS/500 mL 500 ML ONE (13:00)
[2017-09-25] MEDS ORDERED: ISOVUE-370 200 ML INFUS..BTL IV ONE ×2 (13:00→15:44)
[2017-09-25] MEDS ORDERED: Nitroglycerin 1,000 MCG/10 ML VIAL IV ONE ×2 (13:00→15:15)
[2017-09-25] MEDS ORDERED: *HR* Heparin 10,000 UNIT/10 ML VIAL ONE ×2 (13:00→15:15)
[2017-09-25] MEDS ORDERED: 0.9 % Sodium Chloride 1,000 ML ONE ×2 (13:00→14:00)
[2017-09-25] MEDS ORDERED: *HR* Midazolam HCl 2 MG/2 ML VIAL ONE (14:14)
[2017-09-25] MEDS ORDERED: *HR* FentaNYL (PF) 100 MCG/2 ML VIAL ONE (14:15)
[2017-09-25] MEDS ORDERED: Verapamil 5 MG/2 ML VIAL ONE (15:14)
--- NOTE | 2017-09-25 16:39 | Invasive Diagnostic Lab Proc ---
Name: Harshal Prather Date of Study: 09/25/2017 Date: 1930 Ht: 68.9in Medical Record#: [id number] Age: 86 Wt: 152.12lb Gender: Male BSA: 1.84 Order #: [id number] BMI: 22.53 Physicians Procedure Physician: Lorin Hughes MD, [facility] Referring MD: Referring MD: Staff Name Position Time In Eugenio Sandoval RT (R) Scrub 01:24 PM Rhianna Garcia RT (R) Monitor 01:24 PM Alex Thornton RN Early Childhood Education Worker 01:24 PM Indications Indication Non-Stemi VSD Procedures Performed Procedure R&L HRT ART/VENTRICLE ANGIO Pre-Procedure Checklist Informed consent is complete signed and on chart. H&P is on chart. ID band is on and ID verified with patient. Patient NPO for procedure The procedure was described for the patient and questions were answered. ECG is on chart. Plan of Care Patient will tolerate the procedure without complications. Adequate level of comfort will be maintained. Hemodynamics will remain stable Patient will recover from procedure without complications. Respiratory function will be maintained. Cardiac rhythm will remain stable. Patient temperature will be maintained. Patient and/or family have verbalized understanding of the procedure. Patient Education Chief Complaint/Reason for Test: Cardiac Cath Developmental Category: Geriatric (65+ years) Developmentally Appropriate for Age: Yes Learning Barriers: None Education Needs: Procedure Education Method: Verbal Information Taught: Cardiac Cath Educational Evaluation: Able to repeat information Intravenous Access Time IV Size Location DC'd Fluid/Drip Rate Units RN 20g 1 06/13" Patent On Arrival Allergies No Known Allergies Vital Signs Time BP (mmHg) HR (bpm) O2 Sat. RR (bpm) LOC 110 / 70 91 98 % 16 02:15 PM 115 / 80 93 91 % 02:20 PM 115 / 77 92 97 % 02:25 PM 115 / 74 89 97 % 02:30 PM 111 / 76 87 96 % 02:35 PM 112 / 73 118 97 % 02:40 PM 105 / 73 90 96 % 02:45 PM 108 / 72 88 97 % 02:50 PM 113 / 75 95 97 % 02:55 PM 116 / 84 122 97 % 03:00 PM 110 / 85 118 97 % 03:05 PM 118 / 86 119 97 % 03:10 PM 113 / 75 117 96 % 03:15 PM 108 / 78 117 97 % 03:34 PM 97 / 62 113 92 % 03:39 PM 86 / 52 76 94 % 03:45 PM 103 / 59 79 93 % 03:49 PM 103 / 66 83 96 % 03:54 PM 99 / 57 81 96 % 03:59 PM 105 / 63 80 96 % Procedural Medications Time Medication Dose Units Method Given By 02:14 PM Oxygen 2 L/min nasal cannula Alex Thornton RN 02:18 PM Versed 1 mg Intravenous Alex Thornton RN 02:18 PM Fentanyl 25 mcg Intravenous Alex Thornton RN 02:57 PM Lidocaine 2% 12 ml Subcutaneous Lorin Hughes MD, [facility] 03:08 PM Lidocaine 2% 11 ml Subcutaneous Lorin Hughes MD, [facility] ASA Classification: CLASS II- Mild systemic disease (i.e. well-controlled diabetes, hypertension, asthma, cigarette smoking) [place] Score Preprocedure Postprocedure Activity 2- Moves 4 extremities sustained head lift Activity 2- Moves 4 extremities sustained head lift Circulation 2- SBP +/= 20 points of pre-anesthetic level Circulation 2- SBP +/= 20 points of pre-anesthetic level Consciousness 2- Awake and alert oriented x 3 Consciousness 2- Awake and alert oriented x 3 O2 Saturation 2- Able to maintain O2 satruation of 92% on room air O2 Saturation 2- Able to maintain O2 satruation of 92% on room air Respiratory 2- Able to deep breathe and cough well Respiratory 2- Able to deep breathe and cough well Total Score 10 Total Score 10 Contrast Agent: Isovue Diagnostic Contrast: 166 ml Total Contrast: 166 ml Fluoro Dose: 519 mGy Procedure Log Time Note Enter By 01:24 PM Eugenio Sandoval RT (R) Position: Scrub Time in: 13:24 [email or web address] 01:24 PM Rhianna Garcia RT (R) Position: Monitor Time in: 13:24 [email or web address] 01:25 PM Alex Thornton RN Position: Early Childhood Education Worker Time in: 13:24 [email or web address] 01:25 PM Patient charges- Angio tray pack, Navilyst 3mm J, Pulse Oximetry and ACIST tubing and transducer [email or web address] 01:25 PM IV Supplies used: J loop Angio Cath. [email or web address] 01:25 PM Case Delayed No, inpatient [email or web address] 01:25 PM CathStat 02:13 PM Hair removed from procedure site in procedure lab using clippers. Right groin, right brachial prepped with Chloraprep by Khadra Galindo RN, then patient was draped. Skin intact. :13 PM Physician arrived 14:13 PM Meet and greet completed : PM Sign in performed according to hospital policy. :13 PM Procedure start 14:13 : PM Time: 14:14 Oxygen on at 2 L/min per nasal cannula by Alex Thornton RN :14 PM Case Start 02:14 PM Vitals capture started with the following parameters, Patient=Adult, Interval=5 min, Initial Pdzujmdu=551 mmHg, Deflation Rate=5 mmHg, Cuff placed on Right Arm 02:15 PM HR=93 bpm, RSDT=740/80 mmhg, SpO2=91.0 %, Comment=NSR 02:18 PM Time: 14:18 Versed 1 mg Intravenous Given by Alex Thornton RN :19 PM Time: 14:18 Fentanyl 25 mcg Intravenous Given by Alex Thornton RN :19 PM ASA Class CLASS II- Mild systemic disease (i.e. well-controlled diabetes, hypertension, asthma, cigarette smoking) :19 PM [ Enter Saturation Sample ] 02:20 PM HR=92 bpm, YGSU=474/77 mmhg, SpO2=97.0 %, Comment=NSR 02:24 PM Clinical Presentation: Non-STEMI 02:25 PM HR=89 bpm, NVAR=413/74 mmhg, SpO2=97.0 %, Comment=NSR 02:25 PM Pressure channel 1 zeroed. 02:27 PM Time out performed according to hospital policy 02:28 PM Access obtained by percutaneous puncture. 6Fr 11cm Terumo Glidesheath sheath placed in right Basilic vein. [id number] 02:29 PM 5 F DeRoyal Whitehall-Lien inserted through venous sheath 02:30 PM HR=87 bpm, ZVWH=764/76 mmhg, SpO2=96.0 %, Comment=NSR 02:31 PM Saturation: Site=SVC (Superior Vena Cava) , O2=52.4 %, Hgb=10.4 gm/dl, Condition=Condition 1. Used in calculation. 02:31 PM Pressure channel 1 zeroed. 02:33 PM Saturation: Site=RA (Right Atrium) , O2=54.4 %, Hgb=10.4 gm/dl, Condition=Condition 1. Used in calculation. 02:35 PM OY=292 bpm, IKKC=550/73 mmhg, SpO2=97.0 %, Comment=NSR 02:36 PM Recorded Pressure: RA, HR=90, Condition=Condition 1 (Right Atrium) RA 02:37 PM Recorded Pressure: RV, HR=91, Condition=Condition 1 (Right Ventricle) RV 02:37 PM Recorded Pressure: MPA, HR=90, Condition=Condition 1 (Main Pulmonary Artery) MPA 02:38 PM Saturation: Site=PA (Pulmonary Artery) , O2=79.2 %, Hgb=10.4 gm/dl, Condition=Condition 1. Used in calculation. 02:39 PM Recorded Pressure: PCW, HR=91, Condition=Condition 1 (Pulmonary Capillary Wedge) PCW 02:39 PM Saturation: Site=PCW (Pulmonary Capillary Wedge) , O2=78.9 %, Hgb=10.4 gm/dl, Condition=Condition 1. Not used in calculation. 02:40 PM HR=90 bpm, EEGS=706/73 mmhg, SpO2=96 % 02:43 PM Thermo CO: CO=4.6 l/m, HR=90 bpm, Condition=Condition 1. Not used in calculation. Equipment: Description and Size=Whitehall 5 fr, Type=Bath Probe, CC=0.621 Injectant: Temp=19.0 - 22.0 Celsius, Volume=10.0 ml 02:43 PM Thermo CO: CO=8.8 l/m, HR=88 bpm, Condition=Condition 1. Not used in calculation. Equipment: Description and Size=Whitehall 5 fr, Type=Bath Probe, CC=0.621 Injectant: Temp=19.0 - 22.0 Celsius, Volume=10.0 ml 02:44 PM Thermo CO: CO=7.0 l/m, HR=89 bpm, Condition=Condition 1. Used in calculation. Equipment: Description and Size=Whitehall 5 fr, Type=Bath Probe, CC=0.621 Injectant: Temp=19.0 - 22.0 Celsius, Volume=10.0 ml 02:45 PM Thermo CO: CO=8.3 l/m, HR=90 bpm, Condition=Condition 1. Used in calculation. Equipment: Description and Size=[place]hall 5 fr, Type=Bath Probe, CC=0.621 Injectant: Temp=19.0 - 22.0 Celsius, Volume=10.0 ml 02:45 PM HR=88 bpm, ATMP=530/72 mmhg, SpO2=97 % 02:46 PM Thermo CO: CO=7.1 l/m, HR=89 bpm, Condition=Condition 1. Used in calculation. Equipment: Description and Size=Whitehall 5 fr, Type=Bath Probe, CC=0.621 Injectant: Temp=19.0 - 22.0 Celsius, Volume=10.0 ml 02:46 PM Thermo CO: CO=7.0 l/m, HR=87 bpm, Condition=Condition 1. Used in calculation. Equipment: Description and Size=Whitehall 5 fr, Type=Bath Probe, CC=0.621 Injectant: Temp=19.0 - 22.0 Celsius, Volume=10.0 ml 02:50 PM HR=95 bpm, PDUF=593/75 mmhg, SpO2=97 % 02:50 PM 0.035 260cm Navilyst 3mmJ wire [id number] dspellman 02:50 PM Whitehall-Lien catheter removed with balloon intact dspellman 02:51 PM 5Fr MPA catheter inserted over the wire inserted through venous sheath. [id number] dspellman 02:55 PM DO=487 bpm, NASB=035/84 mmhg, SpO2=97.0 % 02:55 PM Right heart hemodynamics, O2 saturations and Cardiac Outputs obtained. dspellman 02:55 PM Catheter removed dspellman 02:56 PM Saturation: Site=IVC (Inferior Vena Cava) , O2=51.1 %, Hgb=10.4 gm/dl, Condition=Condition 1. Used in calculation. 02:56 PM Pressure channel 1 zeroed. 02:57 PM Time: 14:57 12 ml Lidocaine 2% to left groin Subcutaneous Given by Lorin Hughes MD, [facility] dspellman 02:58 PM Access obtained by percutaneous puncture. 5Fr 10cm Terumo [place]oli sheath placed in right Femoral artery. [id number] dspellman 02:58 PM 5Fr FL 4 catheter inserted over the wire [facility] dspellman 02:58 PM Saturation: Site=FA (Femoral Artery) , O2=96.6 %, Hgb=10.4 gm/dl, Condition=Condition 1. Used in calculation. 03:00 PM MS=229 bpm, OFSF=317/85 mmhg, SpO2=97 % 03:02 PM contrast injected, 100% occlusion of the Right Iliac dspellman 03:02 PM Catheter removed dspellman 03:04 PM Recorded Pressure: Ao, BX=480, Condition=Condition 1 (Aorta) Ao 84/71/78 03:05 PM WP=572 bpm, GQAG=830/86 mmhg, SpO2=97 % 03:07 PM Prepping Left groin dspellman 03:08 PM Time: 15:08 11 ml Lidocaine 2% to left groin Subcutaneous Given by Lorin Hughes MD, [facility] dspellman 03:10 PM Access obtained by percutaneous puncture. dspellman 03:10 PM TK=935 bpm, ZRVX=533/75 mmhg, SpO2=96.0 % 03:11 PM 0.035 180cm Glidewire wire [id number] dspellman 03:13 PM unable to advance wire. dspellman 03:13 PM needle and wire removed dspellman 03:14 PM Recorded Pressure: Ao, MO=969, Condition=Condition 1 (Aorta) Ao 85/69/78 03:15 PM PQ=548 bpm, PQJQ=886/78 mmhg, SpO2=97 % 03:18 PM Catheter and wire inserted through right groin 5 angolan sheath dspellman 03:19 PM contrast injected dspellman 03:21 PM Vitals capture stopped. 03:23 PM sheath removed from right groin dspellman 03:23 PM Prepping Left wrist for access dspellman 03:26 PM NIBP STAT measurement started. 03:29 PM Vitals capture stopped. 03:30 PM Access obtained by percutaneous puncture. 5Fr 10cm Terumo Glidesheath sheath placed in left Radial artery. [id number] dspellman 03:34 PM Vitals capture started with the following parameters, Patient=Adult, Interval=5 min, Initial Ewapzgqe=956 mmHg, Deflation Rate=5 mmHg, Cuff placed on Right Arm 03:34 PM 5Fr FR 4 catheter inserted over the wire [facility] dspell 03:34 PM PY=801 bpm, NIBP=97/62 mmhg, SpO2=92 % 03:34 PM 0.035 260cm Navilyst 3mmJ wire [id number] dspellman 03:36 PM RCA angiography performed in multiple views. dspellman 03:36 PM Recorded Pressure: Ao, AQ=493, Condition=Condition 1 (Aorta) Ao 86/71/78 03:36 PM Catheter removed dspell 03:36 PM 5Fr FL 4 catheter inserted over the wire [facility] dspell 03:38 PM Recorded Pressure: Ao, ZK=696, Condition=Condition 1 (Aorta) Ao 86/67/76 03:39 PM LCA angiography performed in multiple views. dspell 03:39 PM Catheter removed dspell 03:39 PM HR=76 bpm, NIBP=86/52 mmhg, SpO2=94 % 03:40 PM 5Fr Pigtail catheter inserted over the wire [facility] dspell 03:40 PM Catheter selectively placed in left ventricle dspell 03:42 PM Bolus angiogram of left Ventricle complete: 8 ml/sec for a total of 24 mls dspell 03:42 PM Recorded Pressure: LV, HR=85, Condition=Condition 1 (Left Ventricle) LV 89/13/21 03:45 PM HR=79 bpm, WOER=197/59 mmhg, SpO2=93.0 % 03:46 PM Recorded Pressure: LV, Ao, HR=81, Condition=Condition 1 (Left Ventricle) LV 83/33/39, (Aorta) Ao 84/63/74 03:49 PM HR=83 bpm, GXEQ=442/66 mmhg, SpO2=96 % 03:51 PM Saturation: Site=PCW (Pulmonary Capillary Wedge) , O2=96.6 %, Hgb=10.4 gm/dl, Condition=Condition 1. Used in calculation. 03:53 PM Catheter removed dspell 03:53 PM Procedure completed at 15:53 dspellman 03:54 PM Right Arterial sheath pulled using manual compression and V+ Pad for minutes by Jordy Muñoz RN [facility] 03:54 PM HR=81 bpm, NIBP=99/57 mmhg, SpO2=96 % 03:55 PM Left Brachial Arterial sheath pulled using manual compression and V+ Pad for minutes by Eugenio Sandoval RT (R) dspellman 03:55 PM Right Basilic Venous sheath pulled using manual compression and V+ Pad for minutes by Alex Thornton RN dspellman 03:59 PM HR=80 bpm, TZZU=274/63 mmhg, SpO2=96 % 04:02 PM Estimated Blood Loss: minimal dspellman 04:03 PM Post ECG NSR dspellman 04:03 PM Post Blood Pressure 105/63 dspellman 04:03 PM Family placed in consult room. dspellman 04:04 PM Lesion found in LMCA. Pre Stenosis: 20 Pre ANAYELI Flow: 3: Complete and Brisk Flow/Perfusion dspellman 04:04 PM Lesion found in Proximal LAD. Pre Stenosis: 40 Pre ANAYELI Flow: 3: Complete and Brisk Flow/Perfusion dspellman 04:05 PM Lesion found in 2nd Diagonal. Pre Stenosis: 25 Pre ANAYELI Flow: 3: Complete and Brisk Flow/Perfusion dspellman 04:05 PM Lesion found in Proximal Circumflex. Pre Stenosis: 30 Pre ANAYELI Flow: 3: Complete and Brisk Flow/Perfusion dspellman 04:06 PM Lesion found in Mid Circumflex. Pre Stenosis: 99 Pre ANAYELI Flow: 2: Partial Flow/Perfusion (> 1 but < 3) dspellman 04:06 PM Lesion found in Proximal RCA. Pre Stenosis: 70 Pre ANAYELI Flow: 2: Partial Flow/Perfusion (> 1 but < 3) dspellman 04:07 PM Lesion found in Mid RCA. Pre Stenosis: 99 Pre ANAYELI Flow: 2: Partial Flow/Perfusion (> 1 but < 3) dspellman 04:07 PM Coronary Dominance: right dspellman 04:18 PM Report given to Sam MOODY Pt taken to E Room #23. 16:18 dspellman 04:19 PM Sign out completed: Radiation Dose mGy Fluoro Time: Isovue 370 - 200ml contrast 166 ml given by Lorin Hughes MD, [facility]. Complications: NoneCardiac Rehab Consult needed: NoConfirmed administered medications: Yes dspellman 04:19 PM Did you address ANAYELI flow and Dominance? Yes dspellman 04:19 PM Isovue 370 - 200ml,1 Bottle(s) used. dspellman 04:20 PM Information taught Cardiac Cath :20 PM Education needs Procedure, Plan of Care, and Responsibilities of Patient in Care : PM Learning barriers :None : PM Education Methods Verbal : PM Education evaluation Able to repeat information : PM Site status No bleeding/hematoma - Rt Arm as reported by Alex Thornton RN at 16:21 dspell: PM Site status No bleeding/hematoma - Rt Groin as reported by Jordy Muñoz RN at 16:21 dsp: PM Site status No bleeding/hematoma - Lt Arm as reported by Eugenio Sandoval RT (R) at 16:21 : PM Opsite applied : PM Patient out of room: 16:21 :22 PM Isovue 370 - 200ml contrast 166 ml given by Gladis Hughes MD. : PM Fluoro Time: 18.5 : PM Radiation Dose 519.43 mGy [facility] Complications Complication None Hemodynamics Pressures Site Systolic/A Wave Diastolic/V Wave Mean RA 16 13 13 RV 45 19 20 MPA 43 24 33 PCW 26 25 22 AO 84 71 78 AO 85 69 78 AO 86 71 78 AO 86 67 76 LV 89 13 21 LV 83 33 39 AO 84 63 74 Oximetry Site Saturation SVC 52.4 SVC 52.4 RA 54.4 RA 54.4 PA 79.2 PA 79.2 PCW 78.9 PCW 96.6 PCW 96.6 IVC 51.1 IVC 51.1 FEM_ART 96.6 FEM_ART 96.6 RV 0 Cardiac Output 7.4 l/min Cardiac Index 4.48 l/min/m2 QP:QS 2.54 Post Procedure Information Blood Pressure: 105/63 mmHg Rhythm: NSR Post procedural instructions were given Closure Device Time Device Success/Fail 09/25/2017 4:24:00 PM Manual Compression Right Arm Successful 09/25/2017 4:24:00 PM Manual Compression Right Groin Successful 09/25/2017 4:24:00 PM Manual Compression Left Arm Successful Site Checks Time Location Status Staff Sheath In? Note 04:21 PM Rt Arm No bleeding/hematoma Alex Thornton RN 04:21 PM Rt Groin No bleeding/hematoma Jordy Muñoz RN 04:21 PM Lt Arm No bleeding/hematoma Eugenio Sandoval RT (R) Pulses Time Site Pre-Procedure Post-Procedure Note Bilateral DP & PT 2+ Reported by the Floor Bilateral radial 2+ 09/25/2017 4:26:00 PM Bilateral DP & PT Doppler 09/25/2017 4:26:00 PM Bilateral radial 2+ Updated by Rhianna Garcia, RT (R) on 09/25/2017 4:30:21 PM Rhianna Garcia RT electronically signed on 09/25/2017 4:31:44 PM with status of Final
--- NOTE | 2017-09-25 17:05 | Event Note ---
Date of Encounter: 09/25/17 Time of Encounter: 16:58 - Cardiology Event Note Patient is s/p C with significant CAD. New VSD noted. Recommend transfer to [facility] for possible percutaneous closure of VSD. Dr.Jennifer Hughes spoke with Dr.Carlos Davis, diet supervisor at [facility] who's agreeable to accept patient for transfer. Discussed with utilization review regarding [facility] insurance. UR spoke with [place] regarding payment, [place] states ok for transfer since [facility]. OK for transfer from [facility] standpoint. Disks made of films and echo and placed on chart on floor. Called and spoke with regarding transfer.
--- NOTE | 2017-09-25 17:18 | Discharge Summary ---
Orders not resulted at time of discharge: Pending orders 09/25/17 12:50 CL Cardiac Catheterization [CL] Routine 09/26/17 04:00 BMP [Basic Metabolic Panel] AM 0400 CBC no Diff [Complete Blood Count w/o Diff] [HEME] AM 04009/27/17 04:00 BMP [Basic Metabolic Panel] AM 0400 CBC no Diff [Complete Blood Count w/o Diff] [HEME] AM 04009/28/17 04:00 BMP [Basic Metabolic Panel] AM 0400 CBC no Diff [Complete Blood Count w/o Diff] [HEME] AM 04009/29/17 04:00 BMP [Basic Metabolic Panel] AM 040 CBC no Diff [Complete Blood Count w/o Diff] [HEME] AM 04009/30/17 04:00 BMP [Basic Metabolic Panel] AM 040 CBC no Diff [Complete Blood Count w/o Diff] [HEME] AM 040 Date of Encounter: 09/25/17 Time of Encounter: 17:18 - Discharge Diagnosis (1) VSD (ventricular septal defect) Priority: Primary Status: Acute (2) Systolic murmur Priority: Primary Status: Acute (3) Chest pain Priority: Primary Status: Acute Qualifiers: Chest pain type: precordial pain Qualified Code(s): R07.2 - Precordial pain (4) Shortness of breath Priority: Secondary Status: Acute (5) Weakness Priority: Secondary Status: Acute (6) Coronary artery disease Priority: Secondary Status: Acute Qualifiers: Coronary Disease-Associated Artery/Lesion type: [place] artery [place] vs. transplanted heart: [place] heart Associated angina: with stable angina Qualified Code(s): I25.118 - Atherosclerotic heart disease of [place] coronary artery with other forms of angina pectoris (7) Benign prostate hyperplasia Priority: Secondary Status: Acute Qualifiers: Lower urinary tract symptom presence: unspecified whether lower urinary tract symptoms present Qualified Code(s): N40.0 - Benign prostatic hyperplasia without lower urinary tract symptoms (8) DVT prophylaxis Priority: Secondary Status: Acute Hospital course: Mr. Prather is a 86 year old DNR-CCA/DNI male with a past medical history of CAD, HTN, BPH, and remote tobacco dependence that presented from the [facility] with complaints of one week of weakness and shortness of breath. Patient was noted to have elevated troponin and was transferred to [facility]. Patient was diagnosed with an NSTEMI and cardiology was consulted. TTE revealed new VSD with left to right shunt, aneurysmal basal inferior wall. LHC was performed showing VSD with Qp:Qs ratio of 2.5:1, EF 50-55%, and moderate pulmonary HTN. Disks were made of films and echo and placed on chart. Dr.Jennifer Hughes spoke with Dr.Carlos Davis, auto glass worker at [facility] who agreed to accept patient for transfer for possible percutaneous closure of VSD. Discussed with utilization review regarding [place] insurance and clearance was given for transfer. Patient was transferred to [facility]. Discharge discussed with: other - Time Spent with Patient Total time spent providing and/or coordinating discharge services: Less than 30 minutes Specific discharge activities: Transfer to [facility] - Discharge Medications Home Medications: Alfuzosin HCl [Uroxatral] 10 mg PO DAILY 09/23/17 [History] Aspirin [Lo-Dose Aspirin EC] 81 mg PO DAILY 09/23/17 [History] Atorvastatin [Lipitor] 40 mg PO HS 09/23/17 [History] Chlorhexidine Rinse 15 ml MM DAILY 09/23/17 [History] Cholecalciferol (D-3) [Vitamin D] 2,000 unit PO DAILY 09/23/17 [History] Enoxaparin [Lovenox] 60 mg SQ Q12HR 09/23/17 [History] Furosemide [Lasix] 20 mg IV DAILY 09/23/17 [History] Gabapentin [Neurontin] 300 mg PO TID 09/23/17 [History] Ipratropium/Albuterol Neb [Duoneb] 3 ml IH Q6HR 09/23/17 [History] Metoprolol [Lopressor] 12.5 mg PO BID 09/23/17 [History] Pantoprazole Sodium [Protonix] 40 mg PO DAILY 09/23/17 [History] Allergies/Adverse Reactions: 3 Allergy/AdvReac Type Severity Reaction Status Date / Time No Known Allergies Allergy Verified 09/15/15 18:03 Date of admission: 09/23/17 18:12 Primary care physician: PCP [facility] Consults: 09/23/17 22:51 Consult to Cardiology [CONS] Routine Comment: Consulting Provider: Cardiology Steph Reason for Consult: [facility]I [facility], Trop 1.66, on lovenox Call Completed: No 09/25/17 09:33 Consult to Physical Therapy [CONS] Routine Comment: Evaluate, develop and implement POC Reason for Consult: eval and treat Does patient have active BEDREST order?: No Is patient medically & hemodynamically stable?: Yes Patient assessed for mobility or mobilized this visit?: No 09/25/17 09:34 Consult to Occupational Therapy [CONS] Routine Comment: Evaluate, develop and implement POC Reason for Consult: eval and treat Does patient have active BEDREST order?: No Is patient medically & hemodynamically stable?: Yes Patient assessed for mobility or mobilized this visit?: No Discharging clinician: Darian Rodriguez Anticipated date of discharge: 09/25/17 - Constitutional Vitals: Temp Pulse Resp BP Pulse Ox 97.9 F 83 16 103/67 97 09/25/17 16:23 09/25/17 16:23 09/25/17 16:23 09/25/17 16:23 09/25/17 16:23 Exam: See corresponding progress note for same date of service. - Patient Status Disposition: Transfer Critical Access Hosp Condition: Fair Overall status at discharge: other - Discharge Instructions Follow Up With: [facility],PCP [Primary Care Provider] - - Diet and Activity Activity: other Diet: other
[2017-09-25 20:52] VITALS: BP 114/74
== END 2017-09-25 21:08 | disposition critical access hospital (66) | DRG 281 ==
LOC: SUATTDRO 18:12 → 2NENU 18:12
PROVIDERS: ADMIT Internal Medicine; ATTEND Hospitalist